=== PATIENT | female | born 1960 | race Caucasian/White ===

== ENCOUNTER → 2016-06-17 | Outpatient (CLI) | payer OTHER ==
[~2016-06-17] MED LIST: ESTR0.5T PO; LACTCAP8 PO; NEUR100C PO; PROV5TAB PO; VITA1000 PO
[2016-06-17 12:37] LABS: AUTOMATED NEUTROPHIL # 3.6 TH/MM3 (1.8-7.7); BASOPHIL # 0.1 TH/MM3 (0-0.2); BASOPHIL % 1.4 % (0.0-2.0); EOSINOPHIL # 0.1 TH/MM3 (0-0.4); EOSINOPHIL % 1.9 % (0.0-4.0); HEMATOCRIT 44.3 % (35.0-46.0); HEMO FLAGS DIFF FINAL; LYMPH % 24.7 % (9.0-44.0); LYMPHOCYTE # 1.5 TH/MM3 (1.0-4.8); MEAN CELL VOLUME 87.1 FL (80.0-100.0); MEAN CORPUSCULAR HEMOGLOBIN 28.2 PG (27.0-34.0); MEAN CORPUSCULAR HGB CONC 32.4 % (32.0-36.0); MONO % 9.8 % (0.0-8.0); NEUT % 62.2 % (16.0-70.0); PLATELET COUNT 192 TH/MM3 (150-450); RED BLOOD COUNT 5.08 MIL/MM3 (4.00-5.30); RED CELL DISTRIBUTION WIDTH 14.1 % (11.6-17.2); WHITE BLOOD COUNT 5.9 TH/MM3 (4.0-11.0)
[2016-06-17 12:53] LABS: BLOOD, URINE NEG (NEG); GLUCOSE,URINE NEG (NEG); HYALINE CAST, URINE 1 /lpf (RARE); KETONE, URINE NEG (NEG); NITRITE,URINE NEG (NEG); PH, URINE 6.5 (5.0-8.5); SQUAMOUS EPITHELIAL CELL URINE 1 /hpf (0-5); URINE COLOR LIGHT-YELLOW (YELLW/STRAW)
[2016-06-17 13:04] LABS: BICARBONATE 27.4 MEQ/L (21.0-32.0); POTASSIUM 4.8 MEQ/L (3.5-5.1)
--- NOTE | 2016-06-18 11:19 | EKG ---
Date Performed: 06/17/2016 Time Performed: 12:08:34 PTAGE: 55 years EKG: Sinus rhythm NORMAL ECG NO PREVIOUS TRACING DOCTOR: Joshua Tucker Interpretating Date/Time 06/18/2016 11:16:59
== END ==
LOC: CPRE 11:44
PROVIDERS: ATTEND Obstetrics & Gynecology
DX: N92.4 Excessive bleeding in the premenopausal period (principal)
CPT/HCPCS: 36415; 80048; 81001; 84703; 85025; 93005

== ENCOUNTER → 2016-06-25 | Day surgery (SDC) | payer OTHER ==
[~2016-06-25] MED LIST changes: +*morphine SULFATE 8 MG/ML PERIprocedure ONLY ONE; +APREPITANT 40 MG CAP PO SCH; +BUPIVACAINE HCL PF 0.25% 30 ML VIAL INFIL ONE; +CLINDAMYCIN INJ 600 MG in SODIUM CHLORIDE 0.9% INJ 100 ML IV SCH; +DEXAMETHASONE SOD PHOS 4 MG/ML VIAL ONE; +DO NOT ADM ANY ANTICOAGULANT DRUGS XX PRN; +FAMOTIDINE 20 MG/2 ML VIAL ONE; +HYDROmorphone HCL PF 1 MG/ML VIAL IVP PRN; +IBUPROFEN 600 MG TAB PO PRN; +KETOROLAC TROMETHAMINE 30 MG/ML (IVP) VIAL IVP PRN; +KETOROLAC TROMETHAMINE 60 MG/2 ML (IM) VIAL IM ONE; +LACTATED RINGER'S 1000 ML INJ 1,000 ML IV SCH; +LACTATED RINGER'S 1000 ML INJ 1,000 ML ONE; +LEVOFLOXACIN 500 MG PREMIX INJ 100 ML IV SCH; +MIDAZOLAM HCL 2 MG/2 ML VIAL ONE; +NEOSTIGMINE 3 MG/3 ML SYR IV ONE; +ONDANSETRON HCL 4 MG/2 ML VIAL IV PUSH ONE; +ONDANSETRON HCL 4 MG/2 ML VIAL IVP PRN; +PROPOFOL 200 MG/20 ML AMP IV ONE; +SODIUM CHLORIDE 0.9% FLUSH 10 ML FLUSH IV FLUSH PRN; +SODIUM CHLORIDE 0.9% FLUSH 10 ML FLUSH IV FLUSH SCH; +SODIUM CHLORIDE 0.9% INJ 100 ML ONE; +diphenhydrAMINE HCL 25 MG CAP PO PRN; +ePHEDrine/NS 25 MG/5 ML SYR IV ONE; +fentaNYL CITRATE 250 MCG/5 ML AMP ONE; +oxyCODONE/ACETAMINOPHEN 5 MG/325 MG TAB PO PRN
[2016-06-25 06:58] VITALS: BP 171/89; PULSE 73; RESP 16; O2SAT 100
[2016-06-25 13:03] VITALS: BP 123/71; PULSE 62; RESP 16; TEMP 96.6; O2SAT 100
--- NOTE | 2016-06-27 18:15 | MP ---
cc: DAMIR VILLARREAL MD, STEPHEN DATE OF SURGERY 06/25/16 PREOPERATIVE DIAGNOSIS Patient with history of postmenopausal bleeding, known adenomyosis, family history of ovarian cancer. PROCEDURE Total laparoscopic hysterectomy with use of the da Aldo robot POSTOPERATIVE DIAGNOSIS Patient with history of postmenopausal bleeding, known adenomyosis, family history of ovarian cancer. Cystourethroscopy as well SURGEON Sole Preciado MD ANESTHESIA General with endotracheal intubation ESTIMATED BLOOD LOSS: Less than 50 mL SURGICAL SPECIMEN Cervix and uterus. OPERATIVE FINDINGS The patient had an 8-week size uterus that was symmetrical. There was no pelvic adenopathy. Peritoneal findings - The patient's ovaries had been previously removed. Findings on cystourethroscopy demonstrated normal patent ureters and intact bladder. INDICATIONS FOR PROCEDURE Patient with persistent abnormal uterine bleeding, previous history of an ablation, recurrent painful bleeding postmenopausal with a family history of [employer]ER related malignancies. RECOMMENDATIONS Proceed with exam under anesthesia and a simple hysterectomy. PROCEDURE IN DETAIL The patient received clindamycin and Levaquin due to a PENICILLIN ALLERGY as a prophylactic antibiotic. She underwent general anesthesia with endotracheal intubation. She was carefully positioned in dorsal lithotomy position using Mamadou stirrups, carefully positioning the lower extremities with appropriate padding. She had sequentials placed for VTE prophylaxis. After she was prepped and draped, time-out was conducted and agreed by all present in the room. A Ruiz catheter was inserted by sterile technique. A bivalve retractor was used to examine the cervix. Cervix with stenotic uterine cavity was ablated. A channel was made in the midline to place the V-Care device using a medium size cup securing the manipulator securely and then removing the retractor. Gloves were changed. The abdomen was examined. The patient was draped. Incision within the umbilicus was made after injecting with 0.25% plain Marcaine. A 5-mm visible port trocar was placed directly into the peritoneal cavity with insufflation and then the patient was placed in steep Trendelenburg positioning. Accessory ports were placed, 8 mm trocars right and left and then the umbilical port was traded to a 12 mm camera port. The [employer] Aldo patient cart was side docked, #2 arm on the left, #1 arm on the right. A 0 degree lens was used and monopolar nelson were attached to the #2 arm and a [place] bipolar grasper to the #1 arm. No collisions were noted. Good articulation. Attention placed on the surgeon cart revealed good visualization and mobility. Dissection initiated by dividing the round ligaments equally and then opening the retroperitoneal space in the anterior compartment allowing the bladder to be dissected away from the lower uterine segment and vagina. The uterine arteries were skeletonized equally paying careful attention to avoid injury to any adjacent vital structures. Both ureters were far from the dissection point. Once the uterine arteries were secured, a circumferential colpotomy incision was made to allow removal of the uterus and cervix through the vaginal opening. This was accomplished with simple traction by the commissary assistant and then the #2 arm was replaced with a suture cut needle driver/guide. A #1 Stratifix suture was used to close the vaginal cuff in a linear fashion starting from the midline with good closure. Integrity of the closure was tested with a sponge stick by the commissary assistant through the vagina with good result. No active bleeding hematoma was incurred. The suture needles were trimmed. The da Aldo patient cart was then undocked and straight laparoscopy was used to finish the procedure retrieving the suture needles and making a full count which was correct. Irrigation of the pelvis off pressure and reinsufflation demonstrated no active bleeding and no hematoma. The umbilical port was then closed with a crossbow with #1 Vicryl suture. Good result was noted. The skin incisions were closed with a subcuticular suture of 4-0 Monocryl with Steri-Strips applied. The Ruiz was back-filled with about 250 mL of clear normal saline allowing the straight 5 mm laparoscope to be used to examine the bladder. Visualization under camera video revealed intact bladder. No injury, no deformity. No lesions. Both ureters were peristalsing normally injecting clear urine into the bladder. At the completion of the cysto, the bladder was drained. The Ruiz was reinserted to the collection bag. Examination of the vaginal vault was dry. At the completion of the case, the patient was stable. She was taken to the recovery room, extubated on room air. The final count was correct. MD SEJAL Judge/ /11:34 AM /5:47 PM
== END | disposition home or self-care (01) ==
LOC: HSDC 06:11
PROVIDERS: ATTEND Obstetrics & Gynecology
DX: N95.0 Postmenopausal bleeding (principal); N80.0 Endometriosis of uterus; N84.0 Polyp of corpus uteri; N88.8 Other specified noninflammatory disorders of cervix uteri; N72 Inflammatory disease of cervix uteri; Z80.41 Family history of malignant neoplasm of ovary
CPT/HCPCS: 00840; 58550; 86850; 86900; 86901; 88307; J1100; J1170; J1885; J1956; J2250; J2270; J2405; J2710; J3010; J7120; J8501